=== PATIENT | male | born 1975 | race Two or more races ===

== ENCOUNTER 2020-11-06 09:34 | Inpatient (IN) | payer SELFPAY ==
[2020-11-06] VITALS (19 sets, daily range): BP systolic 117–152; BP diastolic 72–94; Ht 170.2 cm; Wt 109.1 kg
[~2020-11-06] VITALS: Ht 170.2 cm; Wt 109.1 kg
--- NOTE | ~2020-11-06 | HEMODYNAMI ---
PATIENT:CURTIS BROWN MEDICAL RECORD: [id number] : 73 [id number] AD[facility]ION DATE: 11/06/20 Generatedon:110:45 Patient name: CURTIS BROWN Patient #: [id number] SSN: : Date of study: 11/06/2020 Page: Of Hemodynamic Procedure Report Patient Data Patient Demographics Procedure consent was obtained First Name: CURTIS Gender: Male Last Name: STEPHANEI : 1975 Patient #: [id number] Age: 44 year(s) Race: Unknown Additional ID: [id number] Admission Admission Data Admission Date: 11/06/2020 Admission Time: 9:34 Admit Source: Emergency department Procedure Procedure Types Cath Procedure Diagnostic Procedure [facility] w/Coronaries Sedation Charges Moderate Sedation 25-39 minutes PCI Procedure Hemochron ACT Test AMI/SVG/CHUCKING MACHINE SET UP OPERATOR TOOL PTCA or Stent AMI-BMS/MAGO Initial Procedure Description Procedure Date Procedure Date: 11/06/2020 Procedure Start Time: 9:56 Procedure End Time: 10:42 Procedure Staff Name Function Paolo Villegas MD Performing Physician Shashi Matthews RT Monitor Liu Leon RN Nurse Belinda Cool RT Scrub Faraz Gomez RN Casting Assistant Procedure Data Cath Procedure Fluoroscopy Diagnostic fluoroscopy Total fluoroscopy Time: 6.7 time: 6.7 min min Diagnostic fluoroscopy Total fluoroscopy dose: dose: 1102 mGy 1102 mGy Contrast Material Contrast Material Type Amount (ml) Isovue 300 116 Entry Location Entry Primary Successful Side Size Upsize Upsize Entry Closure Olivares ccessful Closure Location (Fr) 1 (Fr) 2 (Fr) Remarks Device Remarks Femoral Right 6 Fr Exoseal artery Short Femoral Right 6 Fr Manual vein Short Compression Estimated blood loss: 5 ml Diagnostic catheters Device Type Used For End Catheter Placement MULTIPACK JL 4.0 5Fr Left Coronary catheter Angiography MULTIPACK 3DRC 5Fr Right Coronary catheter Angiography MULTIPACK Pigtail 5 Fr LV Angiography catheter Procedure Complications No complications Procedure Medications Medication Administration Route Dosage 0.9% NaCl I.V. 100 ml/hr Oxygen etCO2 Nasal cannula 2 l/min Heparin Flush Bag added to field 2 bags (1000units/500ml NS) Lidocaine 2% added to field 20 Benadryl I.V. 50 mg Versed I.V. 1 mg Fentanyl 50 mcg Heparin Bolus I.V. 77156 units Integrilin (Bolus I.V. 9.5 ml 2mg/ml) Fentanyl 50 mcg Versed I.V. 1 mg Integrilin Drip I.V. drip 8.7 ml/hr (75mg/100ml) Integrilin Drip I.V. drip 17.4 ml/hr (75mg/100ml) Morphine I.V. 4 mg Plavix P.O. 600 mg Morphine I.V. 2 mg Zofran I.V. 4 mg unlisted medication 1 Hemodynamics Rest Heart Rate: 60 (bpm) Pressure Samples Time Site Value (mmHg) Purpose Heart Use Rate(bpm) 10:24 LV 143/10,15 EDP 54 10:24 LV 150/-2,20 Snapshot 64 10:25 AO 136/84(108) Pullback 73 10:25 LV 142/0,35 Pullback 73 Gradients Valve Time Site 1 Site 2 Mean SEP/DFP Peak To Heart Use (mmHg) (sec/min) Peak Rate (mmHg) (bpm) Aortic 10:25 LV AO 15 6 6 73 142/0,35 136/84(108) Calculations Valve P-P Mean Valve Index Valve Source Name Gradient Area Flow (cm2) Aortic 6 15 6 15 Snapshots Pre Cath Intra NCS Post Cath Vital Signs Time Heart Resp SPO2 etCO2 NIBP (mmHg) Rhythm Pain Sedation Rate (ipm) (%) (mmHg) Status Level (bpm) 9:55:17 56 26 100 18 136/80(109) NSR 0 (11) 10(A) , No pain 9:59:35 59 18 95 21.7 144/86(112) NSR 0 (11) 10(A) , No pain 10:03:51 65 20 97 30 142/86(113) NSR 0 (11) 10(A) , No pain 10:08:10 66 22 98 27.7 129/76(107) NSR 0 (11) 10(A) , No pain 10:12:26 69 21 100 22.5 141/85(105) NSR 0 (11) 10(A) , No pain 10:16:44 69 21 97 33 136/81(112) NSR 0 (11) 10(A) , No pain 10:21:04 66 21 98 33 134/79(111) NSR 0 (11) 10(A) , No pain 10:25:30 66 12 100 32.2 142/82(122) NSR 0 (11) 10(A) , No pain 10:29:50 66 24 98 31.4 137/85(115) NSR 0 (11) 10(A) , No pain 10:34:08 74 21 100 41.3 141/88(126) NSR 0 (11) 10(A) , No pain 10:38:31 68 12 100 25.5 139/87(120) NSR 0 (11) 10(A) , No pain 10:42:48 74 23 27 142/91(107) NSR 0 (11) 10(A) , No pain Medications Time Medication Route Dose Verified Delivered Reason Notes Effectiveness by by 9:55:37 0.9% NaCl I.V. 100 Paolo Liu used for ml/hr Bakari Leon RN procedure 9:55:45 Oxygen etCO2 2 Paolo Liu used for Nasal l/min Bakari Leon RN procedure cannula 9:55:54 Heparin Flush added 2 Paolo Paolo used for Bag to bags Bakari Villegas MD procedure (1000units/500ml field NS) 9:56:03 Lidocaine 2% added 20ml Paolo Paolo for local to vial Bakari Villegas MD anesthetic field 9:56:18 Benadryl I.V. 50 mg Paolo Liu used for Bakari Leon map colorer 9:56:26 Versed I.V. 1 mg Paolo Liu for sedation Bakari Leon RN 9:56:36 Fentanyl 50 Paolo Liu for sedation mcg Bakari Leon RN 10:00:55 Heparin [place].V. 40110 Paolo Liu for verif ied units Bakari Leon RN anticoagulation per maria teresa guillermo 10:09:37 Integrilin I.V. 9.5 Paolo Liu for 0.5 m L (Bolus 2mg/ml) ml Bakari Leon RN antiplatelet wasted therapy 10:11:33 Fentanyl 50 Paolo Liu for sedation mcg Bakari Leon RN 10:11:37 Versed I.V. 1 mg Paolo Liu for sedation Bakari Leon RN 10:13:15 Integrilin Drip I.V. 8.7 Paolo Liu for (75mg/100ml) drip ml/hr Bakari Leon RN antiplatelet therapy 10:22:13 Integrilin Drip I.V. 17.4 Paolo Liu for incre ased (75mg/100ml) drip ml/hr Bakari Leon RN antiplatelet to therapy 2mcg/kg/min dose after cmp results . infusion for 12 hrs 10:25:26 Morphine I.V. 4 mg Paolo Liu for chest pain Bakari Leon RN 10:28:48 Plavix P.O. 600 Paolo Liu for mg Bakari Leon RN antiplatelet therapy 10:36:51 Morphine I.V. 2 mg Paolo Liu for chest pain Bakari Leon RN 10:36:58 Zofran I.V. 4 mg Paolo Liu for nausea Bakari Leon RN 10:41:08 nitrobid oint. on 1 Paolo Liu for chest pain chest inch Bakari Leon RN Procedure Log Time Note 9:53:04 Admit Source: Emergency department 9:53:39 ACC Patient presents with STEMI CCS Anginal Class 4--Inability to carry out any physical activity w/o angina. Angina may occur at rest. 9:53:50 Procedure Status Emergent Heart Cath (AMI). 9:53:54 Faraz Gomez RN sent for patient. Start room use. 9:53:56 Time tracking: Regular hours (M-F 7:00 - 5:00) 9:54:02 Plan of Care:Hemodynamics will remain stable., Cardiac rhythm will remain stable., Comfort level will be maintained., Respiratory function will remain adequate., Patient/ family verbilizes understanding of procedure., Procedure tolerated without complication., Recovers from procedure without complications.. 9:54:08 Patient received from ED to CCL 1 Alert and oriented. Tansferred to table in Supine position. 9:54:10 Signed procedure consent form obtained from patient. 9:54:11 Warm blankets applied, and vicenta hugger turned on for patient comfort. 9:54:12 Correct patient and procedure confirmed by team. 9:54:12 ECG and BP/O2 sat monitors applied to patient. 9:54:13 Vital chart was started 9:54:14 Baseline sample Acquired. 9:54:16 Rhythm: sinus rhythm 9:54:17 Full Disclosure recording started 9:54:21 H&P Date Dictated: 11/06/2020 Emergent; H&P N/A. 9:54:22 Pre-procedure instructions explained to patient. 9:54:22 Pre-op teaching completed and patient verbalized understanding. 9:54:25 Family in waiting room. 9:54:27 Patient NPO since Breakfast. 9:54:43 Is the patient allergic to Iodine/contrast media? No. 9:54:45 Is patient on blood thinner?No 9:54:49 Patient diabetic? Yes. 9:54:52 ----Pre-sedation anethsthesia assessment.---- 9:54:54 Previous problem with sedation/anesthesia? No ? 9:54:55 Snore? Yes 9:54:57 Sleep apnea? No 9:54:58 Deviated septum? No 9:55:00 Opens mouth fully? Yes 9:55:01 Sticks out tongue? Yes 9:55:04 Airway obstruction? No ? 9:55:06 Dentures? No ? 9:55:11 Pre procedure: right femoral pulse 2+ Normal; easily identifiable; not easily obliterated 9:55:14 Patient pain scale 0/10 ?. 9:55:20 IV patent on arrival in left antecubital with 0.9% NaCl at [facility]. 9:55:30 Right groin area was prepped with chlora-prep and draped in sterile fashion 9:55:31 Alarms reviewed by R. N. 9:55:32 Sharps counted by scrub and verified by R.N. 9:55:35 Physician arrived 9:55:35 --------ALL STOP TIME OUT------ 9:55:35 Final Timeout: patient, procedure, and site verified with staff and physician. All members of the team are in agreement. 9:55:37 0.9% NaCl 100 ml/hr I.V. was administered by Liu Leon RN; used for procedure; Verbal order read back and verified. 9:55:37 Right groin site verified by team. 9:55:45 Oxygen 2 l/min etCO2 Nasal cannula was administered by Liu Leon RN; used for procedure; Verbal order read back and verified. 9:55:46 Physical assessment completed. ASA score P 2 - A patient with mild systemic disease as per Paolo Villegas MD. 9:55:51 Sedation plan: IV Moderate Sedation Medication:Versed, Fentanyl 9:55:54 Heparin Flush Bag (1000units/500ml NS) 2 bags added to field was administered by Paolo Villegas MD; used for procedure; Verbal order read back and verified. 9:55:57 Use device set Femoral Dx 9:56:03 Lidocaine 2% 20ml vial added to field was administered by Paolo Villegas MD; for local anesthetic; Verbal order read back and verified. 9:56:05 ACIST Syringe (46611) opened to sterile field. 9:56:06 Bag Decanter (2002S) opened to sterile field. 9:56:06 Medline Cath Pack ([id number]) opened to sterile field. 9:56:08 ACIST Hand Control (98368) opened to sterile field. 9:56:08 ACIST Manifold (67350) opened to sterile field. 9:56:08 DIAGNOSTIC Multipack 5Fr catheter set (GY3730) opened to sterile field. 9:56:09 Tegaderm 4 x 4 (1626W) opened to sterile field. 9:56:12 EMERALD Guide Wire (756-245) opened to sterile field. 9:56:18 Benadryl 50 mg I.V. was administered by Liu Leon RN; used for procedure; Verbal order read back and verified. 9:56:26 Versed 1 mg I.V. was administered by Liu Leon RN; for sedation; Verbal order read back and verified. 9:56:28 SHEATH 6FR Eden (YQD171) opened to sterile field. 9:56:29 TUBING High Pressure Extension Tubing (Bakari) ([id number]) opened to sterile field. 9:56:29 INFLATOR Merit BasixCompak (DJ5456) opened to sterile field. 9:56:36 Fentanyl 50 mcg was administered by Liu Leon RN; for sedation; Verbal order read back and verified. 9:56:37 Zero performed for pressure channel P1 9:56:42 Zero performed for pressure channel P1 9:56:51 Zero performed for pressure channel P1 9:56:54 Procedure started. 9:56:58 Local anesthetic to right femoral artery with Lidocaine 2% by Paolo Villegas MD.INITIAL ACCESS ONLY 9:57:08 A 6 Fr Short sheath was inserted into the Right Femoral artery 9:57:14 A MULTIPACK JL 4.0 5Fr catheter was advanced over the wire and used for Left Coronary Angiography. 9:57:33 LCA angiography performed. 9:58:10 Catheter exchanged over wire. 9:58:17 A MULTIPACK 3DRC 5Fr catheter was advanced over the wire and used for Right Coronary Angiography. 9:58:45 RCA angiography performed. 9:59:42 Zero performed for pressure channel P1 9:59:54 Catheter exchanged over wire. 10:00:21 GUIDE 6FR JR 4.0 catheter ([id number]) opened to sterile field. 10:00:48 ACC Pre-intervention AUBREY Flow is 0. 10:00:55 Heparin Bolus 96532 units I.V. was administered by Liu Leon RN; for anticoagulation; verified per maria teresa guillermo Verbal order read back and verified. 10:00:57 Pre PCI Site: [place] RCA has 100% stenosis. 10:01:04 6 Fr JR 4 guide catheter was inserted over the wire 10:01:19 WHISPER 300cm guide wire ([id number]) opened to sterile field. 10:01:36 SHEATH 6FR Eden (GNO788) opened to sterile field. 10:01:59 A 6 Fr Short sheath was inserted into the Right Femoral vein 10:03:01 BMW wire advanced. 10:04:32 BMW 300cm Globe 2 J wire ([id number]) opened to sterile field. 10:04:37 Wire advanced across lesion. 10:06:09 Inflate balloon Inflation number: 1 A EUPHORA 2.5 x 20 Balloon ([id number]) was prepped and advanced across the Mid RCA 100, then inflated to 14 RODY for 0:11 (min:sec) . 10:08:07 Inflation number: 1 The EUPHORA 2.5 x 20 Balloon ([id number]) was reinflated across the Dist RCA 100, to 14 RODY for 0:10 (min:sec) . 10:08:19 Balloon removed over the wire. 10:09:37 Integrilin (Bolus 2mg/ml) 9.5 ml I.V. was administered by Liu Leon RN; for antiplatelet therapy; 0.5 mL wasted Verbal order read back and verified. 10:10:27 Place stent Inflation Number: 2 A DEANDRE RX 3.0 x 18 stent ([id number]) was prepped and advanced across the Mid RCA . The stent was deployed at 14 RODY for 0:15 (min:sec) 0. 10:11:33 Fentanyl 50 mcg was administered by Liu Leon RN; for sedation; Verbal order read back and verified. 10:11:37 Versed 1 mg I.V. was administered by Liu Leon RN; for sedation; Verbal order read back and verified. 10:13:15 Integrilin Drip (75mg/100ml) 8.7 ml/hr I.V. drip was administered by Liu Leon RN; for antiplatelet therapy; Verbal order read back and verified. 10:17:22 Stent catheter was removed intact over wire. 10:19:32 Inflate balloon Inflation number: 2 A EMERGE OTW 2.0 x 15 balloon ([id number]) was prepped and advanced across the Dist RCA , then inflated to 0 RODY for 0:00 (min:sec) . 10:19:41 Wire removed. 10:20:15 Contrast injection through the Emerge to see true lumen. 10:21:33 BMW wire advanced. 10:21:48 CV ICU bed called for. 10:22:13 Integrilin Drip (75mg/100ml) 17.4 ml/hr I.V. drip was administered by Liu Leon RN; for antiplatelet therapy; increased to 2mcg/kg/min dose after cmp results . infusion for 12 hrs Verbal order read back and verified. 10:22:23 Balloon removed over the wire. 10:22:24 Wire removed. 10:22:25 Guide catheter removed. 10:22:39 A MULTIPACK Pigtail 5 Fr catheter was advanced over the wire and used for LV Angiography. 10:22:51 LV gram done using WINSTON 10:22:53 LV angiography performed. 10:22:57 LV hemodynamics recorded. 10:23:00 Injector settings: Ml/sec: 10, Volume: 20, 10:23:46 Procedure type changed to Cath procedure, Diagnostic procedure, LHC, LHC w/Coronaries, Sedation Charges, Moderate Sedation 25-39 minutes, PCI procedure, Hemochron ACT Test, AMI/SVG/CHUCKING MACHINE SET UP OPERATOR TOOL PTCA or Stent, AMI-BMS/MAGO Initial 10:24:54 EF : 50 % 10:25:19 Catheter removed. 10:25:26 Morphine 4 mg I.V. was administered by Liu Leon RN; for chest pain; Verbal order read back and verified. 10:26:05 Sheath removed intact; hemostasis achieved with Exoseal to the Right Femoral artery. 10:26:21 Sheath removed intact; hemostasis achieved with Manual Compression to the Right Femoral vein. 10:26:25 Procedure ended.(Physican Out) 10:28:48 Plavix 600 mg P.O. was administered by Liu Leon RN; for antiplatelet therapy; Verbal order read back and verified. 10:29:42 Fluoroscopy time 06.70 minutes. 10:30:41 ACT drawn and resulted at 265 seconds. (normal therapeutic range 180-240 seconds). 10:31:35 Fluoroscopy dose: 1102 mGy 10:31:35 Flurop Dose total: 1102 10:31:42 Dose Area Product 83999 mGy/cm. 10:31:48 Contrast amount:Isovue 300 116ml. 10:31:50 Sharps counted by scrub and verified by R.N. 10:31:51 Insertion/operative site no bleeding no hematoma. 10:31:54 Post-op/insertion site Right Femoral artery dressed using a 4 x 4 and Tegaderm. 10:31:58 Post right femoral artery:stable 10:32:00 Post Procedure Pulses reassessed and unchanged 10:32:03 Post procedure: right dorsailis pedis pulse 1+ Palpable, but thready & weak; easily obliterated. 10:32:09 Post procedure: right femoral pulse 1+ Palpable, but thready & weak; easily obliterated. 10:32:16 Post procedure rhythm: w/ ST elevation 10:32:19 Estimated blood loss: 5 ml 10:32:21 Post procedure instruction explained to patient.Patient verbalizes understanding. 10:32:34 Procedure and supply charges have been captured, reviewed, submitted and are correct. 10:33:32 EXOSEAL 6Fr (EX600) opened to sterile field. 10:35:09 Procedure Complication : No complications 10:36:51 Morphine 2 mg I.V. was administered by Liu Edward RN; for chest pain; Verbal order read back and verified. 10:36:58 Zofran 4 mg I.V. was administered by Liu Leon RN; for nausea; Verbal order read back and verified. 10:41:08 nitrobid oint. 1 inch on chest was administered by Liu Leon RN; for chest pain; Verbal order read back and verified. 10:42:21 [facility] Findings: MVD- PCI performed (see procedure note) 10:42:22 Vital chart was stopped 10:42:24 Operative report dictated upon procedure completion. 10:42:25 See physician's report for complete and final results. 10:42:29 Report given to Pre/Post Procedure Room. 10:42:33 Patient transfered to Pre/Post Procedure Room with Stretcher. 10:42:36 Procedure ended. 10:42:36 Full Disclosure recording stopped 10:42:41 End room use (Document Last) 10:43:29 End room use (Document Last) 10:44:02 End room use (Document Last) Intervention Summary Intervention Notes Time ActionType Lesion and Equipment Used Action# Pressure Duration Attributes 10:06:09 Inflate Mid RCA EUPHORA 2.5 x 1 14 00:11 balloon 20 Balloon ([id number]) 10:08:07 Reinflate Dist RCA EUPHORA 2.5 x 1 14 00:11 balloon 20 Balloon ([id number]) 10:10:27 Place stent Mid RCA DEANDRE RX 3.0 x 2 14 00:15 18 stent ([id number]) 10:19:32 Inflate Dist RCA EMERGE OTW 2.0 2 0 00:00 balloon x 15 balloon ([id number]) Device Usage Item Name Manufacture Quantity Catalog Number Hospital Part Current M inimal Lot# / Charge Number Stock Stock Serial# Code ACIST Syringe Acist 1 20447 045219 534912 024620 2 0 (08739) Medical Systems Inc Bag Decanter Microtek 1 526105 01988 370550 5 () Medical Inc. Medline Cath Medline 1 [id number] 681468 66883 120205 5 Pack ([id number]) ACIST Hand Acist 1 91360 488454 172367 962043 5 Control Medical (38182) Systems Inc ACIST Manifold Acist 1 94675 573580 811410 899270 5 (28572) Medical Systems Inc DIAGNOSTIC Cardinal 1 HF0350 015817 23174 708833 3 0 Multipack 5Fr Health catheter set (JN7443) Tegaderm 4 x 4 3M 1 1626W 291560 475048 363885 5 (1626W) EMERALD Guide Cardinal 1 502-455 671547 443052 589534 5 Wire (502-455) Health SHEATH 6FR Terumo 2 RBS280 985736 994706 114527 4 0 Eden (ZSO465) TUBING High Merit 1 [id number] 506541 83092 643630 1 0 Pressure Medical Extension Tubing (Villegas) ([id number]) INFLATOR Merit Merit 1 LJ0029 485208 861742 417257 1 5 MyRealTrip (FL8789) MULTIPACK JL Cardinal 1 329880 5 4.0 5Fr Health catheter MULTIPACK 3DRC Cardinal 1 053834 5 5Fr catheter Health GUIDE 6FR JR Medtronic 1 [id number] 427206 83319 184997 1 4.0 catheter (HR3YD52) WHISPER 300cm Ward 1 [id number] 369692 334563 277233 5 guide wire Vascular ([id number]) BMW 300cm Ward 1 [id number] 091972 165563 389225 5 Globe 2 J Vascular wire ([id number]) EUPHORA 2.5 x Medtronic 1 [id number] 318672 122670 738284 5 [id number] 20 Balloon ([id number]) DEANDRE RX 3.0 x Medtronic 1 [id number] 134565 2899865 670743 5 [id number] 18 stent ([id number]) EMERGE OTW 2.0 Marshall 1 [id number] 906591 849594 067479 5 [id number] x 15 balloon Scientific ([id number]) MULTIPACK Cardinal 1 950527 5 Pigtail 5 Fr Health catheter EXOSEAL 6Fr Cardinal 1 EX600 812149 415127 446315 1 0 (EX600) Health Signature Audit [place] Time Signature Unsigned Intra-Procedure 11/06/2020 Shashi Matthews RT(R) 10:43:30 AM Intra-Procedure 11/06/2020 Liu Leon RN 10:44:03 AM Intra-Procedure 11/06/2020 Paolo Villegas MD 10:45:03 AM [facility] [address] [place] [address]
[2020-11-06 09:56] LABS: BASOPHILS 0.7 % (0-2); EOSINOPHILS 2.1 % (0-7); HEMATOCRIT 41.8 % (42.0-54.0); HEMOGLOBIN 13.7 g/dL (13.5-17.5); LYMPHOCYTES 22.1 % (15-50); MCH 27.5 pg (26.0-34.0); MCHC 32.8 g/dL (31.0-37.0); MCV 83.8 fL (80.0-100.0); MEAN PLATELET VOLUME 8.6 fL (7.4-10.4); MONOCYTES 6.7 % (2-11); NEUTROPHILS 68.4 % (40-80); PLATELET COUNT 304 10x3/uL (130-400); RBC 4.99 10x6/uL (4.20-6.10); RDW 13.8 % (11.5-14.5); WBC 11.8 10x3/uL (4.8-10.8)
[2020-11-06 10:09] LABS: ALT (SGPT) 32 U/L (10-68); CALC OSMOLALITY 287 mosm/kg (275-300); CALCIUM 9.4 mg/dL (8.5-10.1); CARBON DIOXIDE 21.2 mmol/L (21.0-32.0); CHLORIDE - SERUM 98 mmol/L (98-107); CHOLESTEROL, TOTAL 268 mg/dL (0-200); CREATININE - SERUM 1.1 mg/dL (0.6-1.3); GLUCOSE 360 mg/dL (74-106); HDL CHOLESTEROL 45 mg/dL (32-96); LDL CHOLESTEROL 175 mg/dL (0-100); LDL-HDL RATIO 3.9 ratio (1.5-3.5); POTASSIUM - SERUM 3.7 mmol/L (3.5-5.1); SODIUM 135 mmol/L (136-145); TRIGLYCERIDE 242 mg/dL (30-200); UREA NITROGEN 21 mg/dL (7-18); eGFR NON AFRICAN AMERICAN 77 mL/min (90-120)
--- NOTE | 2020-11-06 10:47 | NUR ---
PT ARRIVED BY STRETCHER TO ROOM CL04. ICU PT AWAITING BED. PT PLACED ON MONITORS AND ASSESSMENT COMPLETED. VSS AT THIS TIME. CALL LIGHT WITHIN REACH. PT'S SON AT BEDSIDE. DR. PIEDRA ROUNDED AND SPOKE WITH PT AND PT'S SON.
--- NOTE | 2020-11-06 10:48 | NUR ---
PT HAS INTEGRILIN GTT TO LEFT AC PIV AT 2MCG/KG/MIN OR 17.4CC/HR. THIS WAS STARTED IN THERAPY TECH.
--- NOTE | 2020-11-06 11:00 | NUR ---
RIGHT GROIN DRESSING C/D/I. NO S/S OF HEMATOMA NOTED. RIGHT PEDAL PULSE PALPABLE. RESTING COMFORTABLY. VSS AT THIS TIME. CALL LIGHT WITHIN REACH. FAMILY AT BEDSIDE.
--- NOTE | 2020-11-06 11:15 | NUR ---
RIGHT GROIN DRESSING C/D/I. NO S/S OF HEMATOMA NOTED. PT DENIES NAUSEA. STILL HAVING CHEST PAIN 01/02. THIS IS KNOWN BY THE PHYSICIAN AND DR. PIEDRA INFORMED PT THAT THIS WILL HOPEFULLY IMPROVE OVER THE NEXT COUPLE OF HOURS WITH THE BLOOD THINNERS ON BOARD. PT VOICED UNDERSTANDING.
--- NOTE | 2020-11-06 11:30 | NUR ---
RIGHT GROIN DRESSING C/D/I. NO S/S OF HEMATOMA NOTED. RIGHT PEDAL PULSE PALPABLE. PT DENIES NAUSEA. TOLERATING SIPS OF SODA AT THIS TIME. NO OTHER NEEDS. FAMILY LEFT TO TAKE SOME OF THEM HOME. THE WILL COME BACK UP TO SIT WITH THE PATIENT.
--- NOTE | 2020-11-06 11:45 | NUR ---
RIGHT GROIN DRESSING C/D/I. NO S/S OF HEMATOMA NOTED. CALL LIGHT WITHIN REACH. PT C/O CHEST PAIN STILL. REPORTS IT IS ABOUT THE SAME. WILL GIVE SOME PAIN MEDICATION TO SEE IF THIS IMPROVES.
--- NOTE | 2020-11-06 12:47 | NUR ---
PT RESTING COMFORTABLY. VSS AT THIS TIME. RIGHT GROIN DRESSING C/D/I. NO S/S OF HEMATOMA NOTED. CALL LIGHT WITHIN REACH. RIGHT PEDAL PULSE PALPABLE. PT REPORTS PAIN HAS IMPROVED SLIGHTLY. FAMILY AT BEDSIDE.
--- NOTE | 2020-11-06 13:30 | NUR ---
RIGHT GROIN DRESSING C/D/I. NO S/S OF HEMATOMA NOTED. RIGHT PEDAL PULSE PALPABLE. PT'S HEAD OF BED INC TO 30 DEGREES. TOLERATED WELL. SET UP WITH SANDWICH TRAY AND DRINK. DENIES NAUSEA AT THIS TIME.
--- NOTE | 2020-11-06 14:30 | NUR ---
RIGHT GROIN DRESSING C/D/I. NO S/S OF HEMATOMA NOTED. PT OFF BEDREST. VOIDED 700cc OF CLEAR YELLOW URINE WITHOUT DIFFICULTY. NO NEEDS AT THIS TIME. PT STILL REPORTS CHEST/BACK PAIN SINCE PROCEDURE. DR. PIEDRA AWARE. PT REPORTS THAT IT HAS NOT GOTTEN WORSE. VSS AT THIS TIME. FAMILY AT BEDSIDE.
--- NOTE | 2020-11-06 16:15 | NUR ---
PT RESTING COMFORTABLY. VSS AT THIS TIME. CALL LIGHT WITHIN REACH. FAMILY AT BEDSIDE. RIGHT GROIN DRESSING C/D/I. NO S/S OF HEMATOMA NOTED. RIGHT PEDAL PULSE PALPABLE. NO NEEDS AT THIS TIME. PT RATES CHEST PAIN 7/10. REPORTS IT IS SLIGHTLY BETTER.
--- NOTE | 2020-11-06 17:40 | NUR ---
PT TAKEN DOWN BY STRETCHER TO ROOM 2310. PT'S GIVEN NUMBER OF ROOM AND NUMBER TO NURSE'S STATION. PT HANDOFF GIVEN AT BEDSIDE WITH ADITHYA ZUNIGA. PT AMBULATED TO BED WITHOUT DIFFICULTY. PLACED ON MONITORS AND GIVEN CALL LIGHT. NO S/S OF DISTRESS NOTED.
--- NOTE | 2020-11-06 17:52 | NUR ---
REC' PT FROM POST INTERVENTIONAL RADIOLOGY TECHNOLOGIST. PT STABLE WITH EQUAL NON LABORED RR ON RA. HEMODYNAMICALLY STABLE. CATH SITE TO R GROIN SOFT WITHOUT HEMATOMA. DRESSING CDI. PEDAL PULSES PALP. PT REPORTS CHEST PAIN 8/10 UPON ARRIVAL TO ICU. PT IS TO GO BACK TO INTERVENTIONAL RADIOLOGY TECHNOLOGIST PER DR TADEO ZAVALETA AND WILL BE NPO AFTER MIDNIGHT. CALL LIGHT WITH IN REACH. PT DENIES ANY OTHER NEEDS OR COMPLAINTS AT PRESEN TIME.
--- NOTE | 2020-11-06 19:30 | NUR ---
REPORT GIVEN BY ICU NURSE. BEDSIDE ROUNDS MADE. PT HAS AN IV IN THE LEFT AC. HE IV MACHINE WAS ALARMING. SITE FLUSHES EASILY. CHANGED CHANNEL ON IV PUMP BUT STILL ALARMED. WILL LOOK AT NEW IV SITE. PT ON TELE. HE IS STILL C/O OF SHARP PAIN IN HIS CHEST AND BACK IN SPITE OF HAVING MORPHINE.
--- NOTE | 2020-11-06 19:35 | NUR ---
PAGED CARDIAC DR. GERENTOLOGICAL PHYSIOTHERAPIST. DR CONTRERAS RETURNED THE CALL. EXPLAINED THE SITUATION AND HE ORDERED TORADOL 15 MG IV Q6H FOR PAIN.
--- NOTE | 2020-11-06 20:00 | NUR ---
ASSESSMENT COMPLETED. PT STATES PAIN IS TOLERABLE FOR NOW BUT WILL TELL ME WHEN HE WANTS MED. GINSENG FARMER IS IN PLACE. PT HAS NO N/V AND NO PAIN RADIATING DOWN HIS RIGHT ARM. IV WAS RESITED TO THE RIGHT WRIST WITH A 20 G NEEDLE. ONE STICK. MEDICATION IS NOW FLOWING EASILY WITHOUT IV ALARMING. SKIN WARM AND DRY.
--- NOTE | 2020-11-06 20:40 | NUR ---
TORADOL 15 MG GIVEN IV PER DR. ORDER. PT RATES HIS PAIN A 7.
--- NOTE | 2020-11-06 22:45 | NUR ---
IV SALINE LOCKED FOR NOW. MEDICATION INFUSION COMPLETED.
[2020-11-07] VITALS (7 sets, daily range): BP systolic 100–125; BP diastolic 64–91
--- NOTE | 2020-11-07 00:02 | NUR ---
IN PT ROOM FOR TEMP. PT WOKE UP ASKING FOR PAIN MEDS. HE STATES HIS CHEST AND BACK PAIN IS AT A 7. HE ASKED ABOUT FOOD, TOO, AND I TOLD HIM IT WAS AFTER MIDNIGHT AND HE COULDN'T HAVE ANYTHING TO EAT OR DRINK UNTIL HIS CATH WAS FINISHED IN THE MORNING. HE WAS OK WITH THIS.
--- NOTE | 2020-11-07 00:30 | NUR ---
PT RECEIVED MORPHINE FOR HIS PAIN.
--- NOTE | 2020-11-07 02:00 | NUR ---
PT IS RESTING QUIETLY. NO C/O PAIN
--- NOTE | 2020-11-07 04:00 | NUR ---
IN PT ROOM TO TAKE TEMP. 98.6 HE HAS NO C/O PAIN. AT THIS TIME OF THE SHIFT HE HAS ONLY VOIDED ONCE.
--- NOTE | 2020-11-07 06:15 | NUR ---
PT IS AWAKE IN HIS ROOM. HE HAS NO C/O AT THIS TIME.
== END 2020-11-07 12:35 | disposition home or self-care (01) | DRG 247 ==
LOC: D.ER 09:34 → D.CLR 11:09 → D.ICU 11:09
PROVIDERS: ADMIT Internal Medicine Cardiovascular Disease; ATTEND Internal Medicine Cardiovascular Disease
PROC: B2111ZZ Fluoroscopy of Multiple Coronary Arteries using Low Osmolar Contrast (ICD-10-PCS; 2020-11-06)
PROC: B2151ZZ Fluoroscopy of Left Heart using Low Osmolar Contrast (ICD-10-PCS; 2020-11-06)
PROC: 027034Z Dilation of Coronary Artery, One Artery with Drug-eluting Intraluminal Device, Percutaneous Approach (ICD-10-PCS; principal; 2020-11-06 09:53)
PROC: 4A023N7 Measurement of Cardiac Sampling and Pressure, Left Heart, Percutaneous Approach (ICD-10-PCS; 2020-11-06 09:53)
DX: I21.19 ST elevation (STEMI) myocardial infarction involving other coronary artery of inferior wall (principal); E11.9 Type 2 diabetes mellitus without complications; I25.5 Ischemic cardiomyopathy